=== PATIENT | female | born 1975 | race Caucasian/White ===

== ENCOUNTER 2019-08-07 07:48 | Day surgery (SDC) | payer BC ==
--- OUTSIDE RECORDS SUMMARY | 2019-08-07 07:51 | XMS REPORT | Clinical Summary ---
:1975 Author Organization [facility] Address [address] [place] [address] Care Team Providers Name Role Phone Asked, No Pcp Primary Care Provider Unavailable Allergies Active Allergy Reactions Severity Noted Date Comments Codeine Itching 05/26/2016 Nausea Morphine Rash Low 05/26/2016 itching Medications Medication Sig Dispensed Refills Start Date End Date Status diazepam (VALIUM) 10 Take 10 mg by 0 Active MG tablet mouth every 6 (six) hours as needed for anxiety. 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 Last Filed Vital Signs Not on file Plan of Treatment Health Maintenance Due Date Last Done Comments CERVICAL CANCER SCREENING 1994 INFLUENZA VACCINE 06/21/2019 Implants Implanted Type Area Pin Pusher Device Shelf Model / Identifier Expiration Serial / Date Lot Matrix Tiss Strattice [id number] Recnstrctv Prcne [employer] - [id number] Human Tissue N/A: LIFECELL 02/18/[id number] / Implanted: Qty: 1 on 06/16/2016 by Marcelo Keith IV, MD at [facility] Implants Abdomen, CORPORATION / Middle [id number] Quadrant/No n Specific [place] Funnel 2, Used To Facilitate The Placement Of All Types Of Silicone Implants Mfr States Cat # Not Sold By Ea/1, Please Transition To Cat # Carpenter- 005 (Bx/5) Implements, Bilateral: [place] 12/22/2017 [id number] / Implanted: Qty: 1 on 06/16/2016 by Pal Heaton Jr., MD at [facility] Tools, Breast / Devices [id number] Implant Brst Memorygel Hpro Jena-Fild [facility] Rnd 350cc - [id number] - [id number] Plastic or Left: MENTOR 06/21/2019 [id number] / Implanted: Qty: 1 on 06/16/2016 by Marcelo Keith IV, MD at [facility] Cosmetic Breast SpoonRocket [id number] / Implants or [id number] Tissue Expanders or Sets Implant Brst Memorygel Hpro Jena-Fild [facility] Rnd 450cc - [id number] - [id number] Plastic or Right: MENTOR 04/30/2021 350 [id number] / Implanted: Qty: 1 on 06/16/2016 by Marcelo Keith IV, MD at [facility] Cosmetic Breast SpoonRocket [id number] / Implants or [id number] Tissue Expanders or Sets Results Not on fileafter 08/06/2018 Kyra DAVID Reconstructive Self 1975 [phone] (Home) [place] [address] Advance Directives For more information, please contact: [phone] Type Date Recorded Patient Supervisor Inspection Room Explanation Advance Directives, Living Will and Medical Power of Screen Making Technician Advance Directives, Living Will and Medical Power of Screen Making Technician
[2019-08-07 08:11] LABS: Specific Gravity 1.015 (1.005-1.030)
[2019-08-07] MEDS ORDERED: Ringers Lactate 1,000 ML IV ONE (08:11)
[2019-08-07] MEDS ORDERED: LIDOCAINE 1% 20 ML MDV ONE (08:22)
[2019-08-07] MEDS ORDERED: MIDAZOLAM HCL 2 MG/2 ML INJ ONE ×2 (09:22→10:38)
[2019-08-07] MEDS ORDERED: PROPOFOL 200 MG/20 ML VIAL IV ONE (10:38)
[2019-08-07] MEDS ORDERED: FENTANYL CITR 100 MCG/2 ML ONE (10:38)
[2019-08-07] MEDS ORDERED: LIDOCAINE 2% MPF 5 ML VIAL ONE (10:38)
[2019-08-07] MEDS ORDERED: NA CHLORIDE 0.9% 1,000 ML ONE (10:43)
[2019-08-07] MEDS ORDERED: LIDOCAINE 1% W/EPI 1:100,000 MDV 20 ML VIAL ONE (10:43)
[2019-08-07] MEDS ORDERED: ONDANSETRON 4 MG/2 ML VIAL ONE ×2 (10:43→11:54)
[2019-08-07] MEDS ORDERED: SCOPOLAMINE HYDROBROMIDE PATCH TD ONE (11:06)
[2019-08-07] MEDS ORDERED: KETOROLAC 30 MG/ML INJ ONE (11:35)
[2019-08-07] MEDS: HYDROMORPHONE HCL 2 MG/ML inj ONE ×4 (11:48→12:12)
[2019-08-07 12:15] VITALS: O2SAT 98
[2019-08-07 13:28] VITALS: BP 140/59; TEMP 97.6
--- NOTE | 2019-08-10 08:13 | OP ---
Date of Procedure: 08/07/2019 Surgeon: Bel Tse MD Preoperative Diagnosis: Menorrhagia. Postoperative Diagnosis: Menorrhagia. Procedure Performed: Hysteroscopy, D and C. Anesthesia: General with LMA as the patient was anxious. Specimens: Endometrial curettings. Complications: No complications. Estimated Blood Loss: Minimal. Findings: Posterior wall thickened endometrium. No intracavitary lesions. Description Of Procedure: The patient is a 44-year-old female with the new onset heavy menstrual per iods gotten worse over time progressively. So, a transvaginal ultrasound was done, thickened endomet rium was found. The patient with history of multiple abdominal surgeries for ruptured diverticulitis and colostomy reversal and complications there off. So, anticipated abdominal intraabdominal adhesi ons and possibility of any complications from hysteroscopy. If there was a perforation that she woul d be better off being at the hospital. Patient also had a high level of anxiety to undergo any proce dures due to all the surgical procedures that she has undergone for the above-dictated reasons, so aileen lutz was consented for hysteroscopic cavity evaluation and endometrial sampling in the hospital under an esthesia. After informed consent was verified, she was taken back to the OR, placed in supine fashion on the op erating table. General anesthesia was given with LMA. Speculum placed to expose the cervix, prep x3 with Betadine was done. Anterior lip grasped with 2 Allis clamps. Slimline diagnostic hysteroscope was introduced through the cervical canal into the uterine cavity, cavity was empty. Thickened post erior wall was visualized. Both tubal ostia visualized. Scope removed. There was not much difficul ty getting into the uterus or at the fundus. No evidence of any perforation. After the scope was re moved, curettings were performed, handed off for permanent pathology. Instrument, needle, and sponge counts were done after instruments were removed and they were correct. She was recovered from anest hesia in the OR and taken to PACU in stable condition. She will follow up with me in 1 week. Plan w ill be to probably do an ablation. JENNIFER/CATERINA Voice ID: [id number] Report ID: [id number]
== END 2019-08-07 13:10 | disposition home or self-care (01) ==
LOC: OR 07:48
PROVIDERS: ATTEND Obstetrics & Gynecology
PROC: 0UJD8ZZ Inspection of Uterus and Cervix, Via Natural or Artificial Opening Endoscopic (ICD-10-PCS; 2019-08-07)
PROC: 0UDB7ZX Extraction of Endometrium, Via Natural or Artificial Opening, Diagnostic (ICD-10-PCS; principal; 2019-08-07 09:30)
DX: N92.0 Excessive and frequent menstruation with regular cycle (principal); F41.9 Anxiety disorder, unspecified; F32.9 Major depressive disorder, single episode, unspecified; Z88.6 Allergy status to analgesic agent; Z82.3 Family history of stroke
CPT/HCPCS: 81025; 88305; 58558; J2704; J2250 ×2; J1170; J3010; J7030; J2405 ×2

== ENCOUNTER 2019-09-06 06:22 | Day surgery (SDC) | payer BC ==
[2019-09-06] MEDS ORDERED: CEFAZOLIN/SWI 2gm 2 GM/20 ML SYR ONE (06:37)
[2019-09-06] MEDS ORDERED: Ringers Lactate 1,000 ML IV ONE (06:37)
[2019-09-06] MEDS ORDERED: PROPOFOL 200 MG/20 ML VIAL IV ONE ×3 (07:05→08:05)
[2019-09-06] MEDS ORDERED: MIDAZOLAM HCL 2 MG/2 ML INJ ONE (07:05)
[2019-09-06] MEDS ORDERED: LIDOCAINE 2% MPF 5 ML VIAL ONE (07:06)
[2019-09-06] MEDS ORDERED: FENTANYL CITR 100 MCG/2 ML ONE ×2 (07:08→08:45)
[2019-09-06] MEDS ORDERED: dexAMETHasone 10 MG/ML VIAL ONE (07:12)
[2019-09-06] MEDS ORDERED: ONDANSETRON 4 MG/2 ML VIAL ONE (07:12)
[2019-09-06] MEDS ORDERED: SCOPOLAMINE HYDROBROMIDE PATCH TD ONE (07:16)
[2019-09-06] MEDS ORDERED: LIDOCAINE 1% W/EPI 1:100,000 MDV 20 ML VIAL ONE (07:36)
[2019-09-06] MEDS ORDERED: NA CHLORIDE 0.9% 1,000 ML ONE (07:37)
[2019-09-06] MEDS ORDERED: KETOROLAC 30 MG/ML INJ ONE (07:56)
[2019-09-06] MEDS ORDERED: DIPHENHYDRAMINE 50 MG/ML VIAL ONE (08:08)
[2019-09-06] MEDS ORDERED: PROMETHAZINE 25 MG/ML VIAL ONE (08:32)
[2019-09-06] MEDS: HYDROMORPHONE HCL 1 MG/ML INJ ONE ×2 (08:34→08:39)
[2019-09-06] MEDS ORDERED: HYDROCODONE/APAP 5/325 MG TAB ONE (09:16)
[2019-09-06 09:35] VITALS: BP 109/74; TEMP 97.6; O2SAT 99
[2019-09-06] MEDS ORDERED: MEPERIDINE HCL 25 MG/0.5 ML ONE (09:45)
--- NOTE | 2019-09-06 19:43 | OP ---
Date of Procedure: 09/06/2019 Surgeon: Bel Tse MD Preoperative Diagnoses: Menorrhagia. Postoperative Diagnosis: Menorrhagia. Procedure Performed: Hysteroscopy and NovaSure endometrial ablation. Anesthesia: General with LMA. Specimens: No specimens. Complications: No complications. Drains: No drains. Condition: Stable. Findings: Cavity empty, undistorted. The length is 5 cm, width 4.6 cm, power 72 gonzales and ablation time 120 seconds. Indications For Procedure: The patient is a 44-year-old perimenopausal lady with heavy menstrual ble eding. Endometrial sampling was performed. No atypia or malignancy was seen. Options of IUD ablati on were discussed, proceed with ablation. She was consented and brought into the hospital. Description Of Procedure: After informed consent was verified, she was taken back to OR, placed in a supine fashion on the operating table. 2 g of Ancef were given. After general anesthesia was given , she was placed in a dorsal lithotomy position. Pelvic exam was performed. Speculum placed to expo se the cervix. Anterior lip grasped with 2 Allis clamps. Then, diagnostic hysteroscopy was performe d under direct visualization through the cervical cavity. The uterine cavity was then entered. Cavi ty empty. Direct hysteroscopy for measurement of the uterine cavity. The cavity sounding length was 9 cm, cervical length 4 cm, cavity length calculated at 5 cm. After the NovaSure device was taken p rimed and deployed, the width was 4.6 cm. The ablation cycle was started after cavity integrity test was performed and there was no leak. The machine was enabled and an ablation cycle of 120 seconds w as performed without any interruption. The device was undeployed in an appropriate manner and the di agnostic hysteroscope was introduced into the uterine cavity. There was excellent burn throughout th e entire uterine cavity into the end at small amount into the top of the proximal part of the cervica l canal. Thorough irrigation was performed and all instruments were removed. Instrument, needle and sponge counts were done and were correct at the end of the case. The patient tolerated the procedur e well. Estimated blood loss minimal. The patient was recovered from anesthesia and taken to PACU i n stable condition. She will follow up with me in 1 month. RABIA Voice ID: [id number] Report ID: [id number]
== END 2019-09-06 10:13 | disposition home or self-care (01) ==
LOC: OR 06:22
PROVIDERS: ATTEND Obstetrics & Gynecology
PROC: 0U5B8ZZ Destruction of Endometrium, Via Natural or Artificial Opening Endoscopic (ICD-10-PCS; principal; 2019-09-06 07:30)
DX: N92.1 Excessive and frequent menstruation with irregular cycle (principal); N95.1 Menopausal and female climacteric states; F32.0 Major depressive disorder, single episode, mild; F41.9 Anxiety disorder, unspecified; K21.9 Gastro-esophageal reflux disease without esophagitis; Z88.6 Allergy status to analgesic agent; Z82.3 Family history of stroke
CPT/HCPCS: 58563; 81025; J2704 ×3; J2550; J1200; J2250; J3010 ×2; J1100; J2175; J1170; J0690; J7120; J7030; J2405

== ENCOUNTER 2020-07-10 01:20 | Emergency (ER) | payer BC ==
--- OUTSIDE RECORDS SUMMARY | 2020-07-10 01:22 | XMS REPORT | Clinical Summary ---
:1975 Author Organization [facility] Address [address] [place] [address] Care Team Providers Name Role Phone Asked, Pcp Primary Care Provider Unavailable Allergies Active [...] due to colostomy 06/16/2016 Ventral hernia 06/16/2016 Encounters Date Type Specialty Care Team Description 04/01/2020 Hospital Encounter Radiology Marcelo Keith IV, MD after 07/10/2019 Social History Tobacco Use Types Packs/Day Years Used Date Former Smoker 1 15 Quit: 04/26/20 16 Smokeless Tobacco: Never Used Alcohol Use Drinks/Week [...] Comments CERVICAL CANCER SCREENING 1994 INFLUENZA VACCINE 07/22/2020 Implants Implanted Type Area Head Start Teacher Device Shelf Model / Identifier Expiration Serial / Date Lot Matrix Tiss Strattice [id number] Recnstrctv Prcne Damien [facility] - [id number] Human Tissue N/A: LIFECELL 02/18/2018 / Implanted: Qty: 1 on 06/16/2016 by Marcelo Haywood IV, MD at [facility] Implants Abdomen, CORPORATION / Middle [id number] Quadrant/No n Specific Osullivan Funnel 2, Used To Facilitate The Placement Of All Types Of Silicone Implants Mfr States Cat # Not Sold By , Please Transition To Cat # Carpenter-005 (Bx/5) Implements, Bilateral: [employer] 12/22/2017 [id number] / Implanted: Qty: 1 on 06/16/2016 by Pal Heaton Jr., MD at [facility] Tools, Breast / Devices [id number] Implant Brst Memorygel Hpro Jena-Fild [facility] Rnd 350cc - [id number] - [id number] Plastic or Left: MENTOR 06/21/2019 350 [id number] / Implanted: Qty: 1 on 06/16/2016 by Marcelo Haywood IV, MD at [facility] Cosmetic Breast ENJORE [id number] / Implants or [id number] Tissue Expanders or Sets Implant Brst Memorygel Hpro Jena-Fild [facility] Rnd 450cc - [id number] - [id number] Plastic or Right: MENTOR 04/30/2021 350 [id number] / Implanted: Qty: 1 on 06/16/2016 by Marcelo Haywood IV, MD at [facility] [place] [employer] Breast ENJORE [id number] / Implants or [id number] Tissue Expanders or Sets Results Not on fileafter 07/10/2019 Kyra DAVID Reconstructive Self 1975 [phone] [facility] [address] (Home) [place] [address] Advance Directives For more information, please contact: [phone] Type Date Recorded Patient Rivet Bucker Explanati on Advance Directives, Living Will and Medical Power of Physician Assistant Primary Care Advance Directives, Living Will and Medical Power of Physician Assistant Primary Care
--- OUTSIDE RECORDS SUMMARY | 2020-07-10 01:22 | XMS REPORT | Continuity of Care Document ---
:1975 Author Organization [facility] t Address [address] [place] [address] Care Team Providers Name Role Phone Asked, Pcp Primary Care Physician Unavailable Olivia Keith MD Attending Clinician Payers Payer Name Policy Type Policy Number Effective Date Expiration Date S toi [id number] xxxxxxxxxxxxxxx 2013 [place] CHOICE 00:00:00 [facility] PPO/[employer] PPOxxxxxxxxxxx [id number] resentPPO Problems Condition Condition Condition Status Onset Resolution Last Treating Co mments Source Name Details Category Date Date Treatment Clinician Date Hernia due Hernia due Disease Active [place] to to 06-16 [facility] colostomy colostomy 00:00: st 00 Ventral Ventral Disease Active [place] hernia hernia 06-16 [facility] 00:[facility]: st 00 Allergies, Adverse Reactions, Alerts Allergy Allergy Status Severity Reaction(s) Onset Inactive Treating Comm ents Source Name Type Date Date Clinician Codeine Propensi Active Itching Nausea [place] ty to 05-26 [facility] adverse 00:00: st reaction 00 s to drug Morphine Propensi Active Rash itching [place] ty to 05-26 [facility] adverse 00:00: st reaction 00 s to drug Social History Social Habit Start Date Stop Date Quantity Comments Source Sex Assigned At [place] [facility] Cigarettes smoked 2018-04-12 2018-04-12 Salvatore Lamasist current (pack per 00:00:00 00:00:00 day) - Reported Cigarette 2018-04-12 2018-04-12 Salvatore [facility] pack-years 00:00:00 00:00:00 Alcohol intake 2018-04-12 2018-04-12 Current drinker [place] [facility] 00:00:00 00:00:00 of alcohol (finding) Alcohol Comment 2016-05-26 2016-05-26 social Salvatore Bah ethodist 00:00:00 00:00:00 History of tobacco 2016-04-26 Current smoker [place] [facility] use 00:00:00 Smoking Status Start Date Stop Date Source Former smoker 2018-04-12 00:00:00 2018-04-12 00:00:00 Salvatore Momin Medications Ordered Filled Start Stop Current Ordering Indication Dosage Frequency Signature Comments Components Source Medication Medication Date Date Medication? Clinician (SIG) Name Name diazepam Yes 10mg Q6H Take 10 mg Robe ston (VALIUM) 10 5-23 by mouth Meth mitchel MG tablet 12:24: every 6 st 24 (six) hours as needed for anxiety. Procedures This patient has no known procedures. Plan of Care Planned Activity Planned Date Details Comments Source Future Scheduled 2020-07-22 INFLUENZA VACCINE [place] [facility] 00:00:00 [code = INFLUENZA VACCINE] Future Scheduled 1994 Screening for Salvatore Sharma [facility] Test 00:00:00 malignant neoplasm of cervix (procedure) [code = 932952143] Encounters Start End Encounter Admission Attending Care Care Encounter Source Date/Time Date/Time Type Type Clinicians Facility Department ID 2020-04-01 2020-04-01 Outpatient [facility] [id number] [place] 00:00:00 00:00:[address] [facility] [id number] Results This patient has no known results.
[2020-07-10] MEDS ORDERED: METHYLPREDNISOLONE 125 MG INJ ONE (02:31)
[2020-07-10 03:14] LABS: Absolute Lymphocytes (CBC) 1.4 K/uL (0.7-4.9); Basophils % 0.1 % (0-1.3); Hematocrit 41.2 % (36.0-45.0); MPV 9.4 fL (7.6-11.3); RBC Red Blood Cell Count 4.07 M/uL (3.86-4.86)
[2020-07-10 03:27] LABS: ALT/SGPT 32 U/L (12-78); AST/SGOT 18 U/L (15-37); Albumin 3.4 g/dL (3.4-5.0); Alkaline Phosphatase 80 U/L (45-117); BUN Blood Urea Nitrogen 10 mg/dL (7-18); Bicarbonate 19 mmol/L (21-32); Bilirubin Direct < 0.1 mg/dL (0-0.2); Bilirubin Total 0.2 mg/dL (0.2-1.0); Glucose Level 170 mg/dL (74-106); Protein, Total 6.6 g/dL (6.4-8.2); Sodium Level 143 mmol/L (136-145)
--- NOTE | 2020-07-10 04:24 | ER ---
Nurse's Notes [facility] Name: Kyra David Age: 45 yrs Sex: Female : 1975 Arrival Date: 07/10/2020 Time: 01:22 Bed 16 Private MD: Diagnosis: Allergic Reaction;Vomiting;Hypokalemia Presentation: 07/10 01:39 Chief complaint: EMS states: "Patient took her night time medications and laid down, vc she woke up about an hour late with n/v/d, she was itchy and bright red all over. She said the only thing she took different was she ran out of her tetracycline that she takes for her acne so she took half of an 875 mg amoxicillin. When we arrived her pulse was tachy in the 120's-130's.". Coronavirus screen: At this time, the client does not indicate any symptoms associated with coronavirus-19. Ebola Screen: No symptoms or risks identified at this time. Onset: The symptoms/episode began/occurred suddenly, today. Anaphylaxis evaluation, the patient reports or I have noted the following symptoms which indicate a significant risk of anaphylaxis: urticaria abdominal pain. Initial Sepsis Screen: Does the patient meet any 2 criteria? RR > 20 per min. No. Patient's initial sepsis screen is negative. Does the patient have a suspected source of infection? No. Patient's initial sepsis screen is negative. Risk Assessment: Do you want to hurt yourself or someone else? Patient reports no desire to harm self or others. Onset of symptoms was July 10, 2020. Care prior to arrival: Medication(s) given: zofran 4 mg, 0.3 mg EPI IM, Benadryl 25mg IM, 25 mg IV. 01:39 Method Of Arrival: EMS: [facility] vc 01:39 Acuity: FOSTER 3 vc Triage Assessment: 01:30 General: Appears in no apparent distress. comfortable, Behavior is calm, cooperative, vc appropriate for age. 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 - Social history:: Smoking status: Patient denies any tobacco usage or history of. Screenin:30 Abuse screen: Denies threats or abuse. Nutritional screening: No deficits noted. vc Tuberculosis screening: No symptoms or risk factors identified. Fall Risk None identified. Assessment: 01:30 Pain: Denies pain. Respiratory: Airway is patent Respiratory effort is even, unlabored, vc Breath sounds are clear. 01:30 General: Appears in no apparent distress. comfortable, Behavior is calm, cooperative, vc appropriate for age. Neuro: Level of Consciousness is awake, alert, obeys commands, Oriented to person, place, time, situation, Appropriate for age. Cardiovascular: Capillary refill < 3 seconds Patient's skin is warm and dry. GI: No signs and/or symptoms were reported involving the gastrointestinal system. : No signs and/or symptoms were reported regarding the genitourinary system. 02:30 Reassessment: Patient appears in no apparent distress at this time. Patient and/or vc family updated on plan of care and expected duration. Pain level reassessed. Patient is alert, oriented x 3, equal unlabored respirations, skin warm/dry/pink. 03:21 Reassessment: Patient appears in no apparent distress at this time. Patient and/or vc family updated on plan of care and expected duration. Pain level reassessed. Patient is alert, oriented x 3, equal unlabored respirations, skin warm/dry/pink. 04:30 Reassessment: Patient and/or family updated on plan of care and expected duration. Pain mt2 level reassessed. Patient is alert, oriented x 3, equal unlabored respirations, skin warm/dry/pink. Patient denies pain at this time. Patient states symptoms have improved. General: Appears in no apparent distress. comfortable, Behavior is calm, cooperative. Vital Signs: 01:39 BP 159 / 93; Pulse 112; Resp 22; Temp 98.2; Pulse Ox 99% on R/A; Weight 83.91 kg; vc Height 5 ft. 3 in. (160.02 cm); 02:00 BP 136 / 82; Pulse 103; Resp 20; Pulse Ox 95% on R/A; vc 03:00 BP 128 / 76; Pulse 100; Resp 18; Pulse Ox 95% on R/A; vc 04:31 BP 128 / 76; Pulse 91; Resp 16; Pulse Ox 97% on R/A; Pain 0/10; mt2 01:39 Body Mass Index 32.77 (83.91 kg, 160.02 cm) vc ED Course: 01:22 Patient arrived in ED. bp1 01:30 Arm band placed on. vc 01:30 Patient has correct armband on for positive identification. Bed in low position. Call vc light in reach. Side rails up X2. Pulse ox on. NIBP on. 01:39 Chelo Downing, RN is Primary Nurse. vc 01:47 Triage completed. vc 01:51 Anatoly Lynn MD is Attending Physician. [facility] 04:30 No provider procedures requiring assistance completed. IV discontinued, intact, mt2 bleeding controlled, No redness/swelling at site. Pressure dressing applied. Administered Medications: 02:25 Drug: SOLU-Medrol 125 mg Route: IVP; Site: left antecubital; vc 03:14 Follow up: Response: No adverse reaction vc 04:20 Drug: Potassium Chloride 40 mEq Route: PO; mt2 04:30 Follow up: Response: Medication administered at discharge. mt2 04:30 Drug: Pepcid 20 mg Route: PO; mt2 04:30 Follow up: Response: Medication administered at discharge. mt2 Outcome: 04:23 Discharge ordered by . [facility] 04:31 Discharged to home ambulatory. mt2 04:31 Condition: good 04:31 Discharge instructions given to patient, Instructed on discharge instructions, follow up and referral plans. medication usage, Demonstrated understanding of instructions, follow-up care, medications, Prescriptions given X 3. 04:33 Patient left the ED. mt2 Signatures: Chelo Downing, RN RN vc Antonieta Gonzalez bp1 Anatoly Lynn MD MD [facility] Lourdes Mcintosh RN RN mt2 Corrections: (The following items were deleted from the chart) 04:33 04:31 Discharge instructions given to patient, Instructed on discharge instructions, mt2 follow up and referral plans. medication usage, Demonstrated understanding of instructions, follow-up care, medications, Prescriptions given X mt2
--- NOTE | 2020-07-10 04:24 | EDPHYS ---
Physician Documentation [facility] Name: Kyra David Age: 45 yrs Sex: Female : 1975 Arrival Date: 07/10/2020 Time: 01:22 Bed 16 Private MD: ED Physician Anatoly Lynn HPI: 07/10 02:36 This 45 yrs old Female presents to ER via EMS with complaints of Allergic mh7 Reaction. 02:36 The patient presents with itching, rash, that is diffuse, vomiting. Onset: The mh7 symptoms/episode began/occurred at 23:00. Associated signs and symptoms: Pertinent positives: nausea, vomiting. 02:38 Associated signs and symptoms: Pertinent positives: rash, , Pertinent negatives: mh7 abdominal pain, Altered mental status chest pain, dysphagia, fever, headache, Light headed shortness of breath, swelling, Syncope. Possible causes: antibiotics, penicillin. At home the patient or guardian has treated the symptoms with nothing. Severity of symptoms: At their worst the symptoms were moderate just prior to arrival, today, in the emergency department the symptoms have improved markedly. Patient states that she took an Augmentin tablet after breaking it in half then 30 minutes later started to have itching, rash, nausea, and vomiting. EMS gave Epinephrine, Benadryl, and Zofran. Denies any fever, chest pain, SOB, abdominal pain, throat swelling.. [employer]: 01:30 LMP N/A - tubal ligation, ablation vc Historical: - Allergies: 01:49 Amoxicillin-Pot Clavulanate (July 10, 2020); vc - Home Meds: 01:49 Trintellix 10 mg oral tab 1 tab once daily [Active]; Duavee 0.45-20 mg oral tab 1 tab vc once daily [Active]; - PSHx: 01:49 Tubal ligation; vc - Immunization history:: Adult Immunizations up to date. - Social history:: Smoking status: Patient denies any tobacco usage or history of. ROS: 02:38 Constitutional: Negative for fever, chills, and weight loss, Eyes: Negative for injury, mh7 pain, redness, and discharge, ENT: Negative for injury, pain, and discharge, Neck: Negative for injury, pain, and swelling, Cardiovascular: Negative for chest pain, palpitations, and edema, Respiratory: Negative for shortness of breath, cough, wheezing, and pleuritic chest pain, Back: Negative for injury and pain, : Negative for injury, bleeding, discharge, and swelling, MS/Extremity: Negative for injury and deformity, Neuro: Negative for headache, weakness, numbness, tingling, and seizure, Psych: Negative for depression, anxiety, suicide ideation, homicidal ideation, and hallucinations, Allergy/Immunology: Negative for hives, rash, and allergies, Endocrine: Negative for neck swelling, polydipsia, polyuria, polyphagia, and marked weight changes, Hematologic/Lymphatic: Negative for swollen nodes, abnormal bleeding, and unusual bruising. Exam: 02:38 Constitutional: This is a well developed, well nourished patient who is awake, alert, mh7 and in no acute distress. Head/Face: Normocephalic, atraumatic. Eyes: Pupils equal round and reactive to light, extra-ocular motions intact. Lids and lashes normal. Conjunctiva and sclera are non-icteric and not injected. Cornea within normal limits. Periorbital areas with no swelling, redness, or edema. ENT: Nares patent. No nasal discharge, no septal abnormalities noted. Tympanic membranes are normal and external auditory canals are clear. Oropharynx with no redness, swelling, or masses, exudates, or evidence of obstruction, uvula midline. Mucous membranes moist. Neck: Trachea midline, no thyromegaly or masses palpated, and no cervical lymphadenopathy. Supple, full range of motion without nuchal rigidity, or vertebral point tenderness. No Meningismus. Chest/axilla: Normal chest wall appearance and motion. Nontender with no deformity. No lesions are appreciated. Cardiovascular: Regular rate and rhythm with a normal S1 and S2. No gallops, murmurs, or rubs. Normal PMI, no JVD. No pulse deficits. Respiratory: Lungs have equal breath sounds bilaterally, clear to auscultation and percussion. No rales, rhonchi or wheezes noted. No increased work of breathing, no retractions or nasal flaring. Abdomen/GI: Soft, non-tender, with normal bowel sounds. No distension or tympany. No guarding or rebound. No evidence of tenderness throughout. Back: No spinal tenderness. No costovertebral tenderness. Full range of motion. Skin: Warm, dry with normal turgor. Normal color with no rashes, no lesions, and no evidence of cellulitis. MS/ Extremity: Pulses equal, no cyanosis. Neurovascular intact. Full, normal range of motion. Neuro: Awake and alert, GCS 15, oriented to person, place, time, and situation. Cranial nerves II-XII grossly intact. Motor strength 5/5 in all extremities. Sensory grossly intact. Cerebellar exam normal. Normal gait. Psych: Awake, alert, with orientation to person, place and time. Behavior, mood, and affect are within normal limits. Vital Signs: 01:39 BP 159 / 93; Pulse 112; Resp 22; Temp 98.2; Pulse Ox 99% on R/A; Weight 83.91 kg; vc Height 5 ft. 3 in. (160.02 cm); 02:00 BP 136 / 82; Pulse 103; Resp 20; Pulse Ox 95% on R/A; vc 03:00 BP 128 / 76; Pulse 100; Resp 18; Pulse Ox 95% on R/A; vc 04:31 BP 128 / 76; Pulse 91; Resp 16; Pulse Ox 97% on R/A; Pain 0/10; mt2 01:39 Body Mass Index 32.77 (83.91 kg, 160.02 cm) vc MDM: 02:04 Patient medically screened. mh7 04:20 Differential diagnosis: anaphylaxis, Hereditary Angioedema non IgE mediated drug mh7 reaction urticaria. Data reviewed: vital signs, nurses notes, EMS record, lab test result(s), CBC, electrolytes, urinalysis. Data interpreted: Pulse oximetry: on room air is 95 %. Interpretation: normal. Counseling: I had a detailed discussion with the patient and/or guardian regarding: the historical points, exam findings, and any diagnostic results supporting the discharge/admit diagnosis, lab results, the need for outpatient follow up, to return to the emergency department if symptoms worsen or persist or if there are any questions or concerns that arise at home. Response to treatment: the patient's symptoms have resolved after treatment, the patient's blood pressure is in an acceptable range, mental status has returned to baseline, the patient no longer shows bradycardia, the patient is not short of breath, the patient is not tachycardic, the patient's pain is gone, the patient's temperature has normalized. 06:40 ED course: Feels better, well appearing, NAD, VSS. No rash, itching, chest pain, SOB, mh7 abdominal pain/tenderness, nausea, vomiting, diarrhea, or other complaints. Tolerating oral intake without difficulty. Patient requests to be discharged from the ED at this time.. 07/10 02:07 Order name: CBC with Diff; Complete Time: 03:55 7 07/10 02:07 Order name: Basic Metabolic Panel; Complete Time: 03:55 7 07/10 02:07 Order name: LFT's; Complete Time: 03:55 7 07/10 02:07 Order name: Urine Dipstick-Ancillary (obtain specimen); Complete Time: 02:41 7 07/10 02:07 Order name: Urine Test (obtain specimen); Complete Time: 02:41 mh7 Administered Medications: 02:25 Drug: SOLU-Medrol 125 mg Route: IVP; Site: left antecubital; vc 03:14 Follow up: Response: No adverse reaction vc 04:20 Drug: Potassium Chloride 40 mEq Route: PO; mt2 04:30 Follow up: Response: Medication administered at discharge. mt2 04:30 Drug: Pepcid 20 mg Route: PO; mt2 04:30 Follow up: Response: Medication administered at discharge. nh2 Disposition: 06:40 Co-signature as Attending Physician, Anatoly Lynn MD. [facility] Disposition: 07/10/20 04:23 Discharged to Home. Impression: Allergic Reaction, Vomiting, Hypokalemia. - Condition is Stable. - Discharge Instructions: Nausea and Vomiting, Adult, [id number], Rash, [id number], Pruritus, Hypokalemia. - Prescriptions for Benadryl 25 mg Oral Capsule - take 2 capsule by ORAL route every 6 hours As needed; 30 tablet. Pepcid 20 mg Oral Tablet - take 1 tablet by ORAL route every 12 hours for 5 days; 10 tablet. Prednisone 20 mg Oral Tablet - take 2 tablet by ORAL route once daily for 5 days; 10 tablet. - Medication Reconciliation Form, Thank You Letter, Antibiotic Education, Prescription Opioid Use form. - Follow up: Private Physician; When: 1 - 2 days; Reason: Worsening of condition, Recheck today's complaints, Continuance of care, Re-evaluation by your physician. - Problem is new. - Symptoms are resolved. Signatures: Dispatcher [employer] EDMS Chelo Downing RN RN Anatoly Lynn MD MD 7 Lourdes Mcintosh RN RN mt2 Corrections: (The following items were deleted from the chart) 04:28 04:23 07/10/2020 04:23 Discharged to Home. Impression: Allergic Reaction; Vomiting. [facility] Condition is Stable. Forms are Medication Reconciliation Form, Thank You Letter, Antibiotic Education, Prescription Opioid Use. Follow up: Private Physician; When: 1 - 2 days; Reason: Worsening of condition, Recheck today's complaints, Continuance of care, Re-evaluation by your physician. Problem is new. Symptoms are resolved. [facility] 04:33 04:28 07/10/2020 04:23 Discharged to Home. Impression: Allergic Reaction; Vomiting; mt2 Hypokalemia. Condition is Stable. Discharge Instructions: Nausea and Vomiting, Adult, [id number], Rash, Qsyz-[id number], Pruritus. Prescriptions for Benadryl 25 mg Oral Capsule - take 2 capsule by ORAL route every 6 hours As needed; 30 tablet, Pepcid 20 mg Oral Tablet - take 1 tablet by ORAL route every 12 hours for 5 days; 10 tablet, Prednisone 20 mg Oral Tablet - take 2 tablet by ORAL route once daily for 5 days; 10 tablet. and Forms are Medication Reconciliation Form, Thank You Letter, Antibiotic Education, Prescription Opioid Use. Follow up: Private Physician; When: 1 - 2 days; Reason: Worsening of condition, Recheck today's complaints, Continuance of care, Re-evaluation by your physician. Problem is new. Symptoms are resolved. [facility]
[2020-07-10] MEDS ORDERED: POTASSIUM CL SA 10 MEQ TAB PO ONE ×2 (04:30→04:31)
[2020-07-10] MEDS ORDERED: FAMOTIDINE 20 MG TAB ONE (04:35)
[2020-07-10 05:44] VITALS: TEMP 98.2
[2020-07-10 05:45] VITALS: BP 128/76
[2020-07-10 05:46] VITALS: O2SAT 97
== END 2020-07-10 04:33 | disposition home or self-care (01) ==
LOC: ER 01:20
DX: E87.6 Hypokalemia (principal); R21 Rash and other nonspecific skin eruption; Z88.8 Allergy status to other drugs, medicaments and biological substances
CPT/HCPCS: 85025; 80048; 36415; 80076; 96374; 99284; J2930